=== PATIENT | female | born 1990 | race Caucasian/White ===

== ENCOUNTER 2017-07-10 00:30 | Emergency (ER) | payer MEDICAID ==
[~2017-07-10] VITALS: Ht 5.1 cm; Wt 44.7 kg
[~2017-07-10 00:30] MED LIST: ACET-1757 PO; DOCU-131 PO; HYDR1TAB12 PO; IBUP-1222 PO; PREN1TAB28 PO
[2017-07-10 00:31] VITALS: BP 125/73
== END 2017-07-10 02:43 | disposition home or self-care (01) ==
LOC: ED 01:18
DX: O26.891 Other specified pregnancy related conditions, first trimester (principal); R10.2 Pelvic and perineal pain; O99.331 Smoking (tobacco) complicating pregnancy, first trimester; Z3A.11 11 weeks gestation of pregnancy
CPT/HCPCS: 36415; 76801; 84702; 86901; 99285

== ENCOUNTER 2017-10-17 16:25 | Outpatient (CLI) | payer MEDICAID ==
[2017-10-17 16:37] VITALS: BP 115/70
[2017-10-17 17:11] LABS: DAU SCREEN DISCLAIMER
== END 2017-10-17 18:20 | disposition home or self-care (01) ==
LOC: LDOP 16:25
PROVIDERS: ATTEND Student in an Organized Health Care Education/Training Program
DX: O99.332 Smoking (tobacco) complicating pregnancy, second trimester (principal); O99.343 Other mental disorders complicating pregnancy, third trimester; F32.9 Major depressive disorder, single episode, unspecified; Z3A.25 25 weeks gestation of pregnancy
CPT/HCPCS: 59025; 80307; 99201; G0463; G0479

== ENCOUNTER 2017-11-18 06:12 | Emergency (ER) | payer MEDICAID ==
[~2017-11-18] VITALS: Ht 157.5 cm; Wt 53.3 kg
[2017-11-18 06:13] VITALS: BP 130/79
[2017-11-18] MEDS ORDERED: ACETAMINOPHEN 500 MG TABLET ONE (06:38)
[2017-11-18] MEDS ORDERED: ACETAMINOPHEN 500 MG TABLET PO ONE (07:00)
== END 2017-11-18 07:09 | disposition home or self-care (01) ==
LOC: ED 06:50
DX: K08.89 Other specified disorders of teeth and supporting structures (principal); O26.893 Other specified pregnancy related conditions, third trimester; Z3A.30 30 weeks gestation of pregnancy; O99.333 Smoking (tobacco) complicating pregnancy, third trimester; F17.210 Nicotine dependence, cigarettes, uncomplicated
CPT/HCPCS: 99283

== ENCOUNTER 2017-12-06 02:27 | Emergency (ER) | payer MEDICAID ==
[~2017-12-06] VITALS: Ht 157.5 cm; Wt 56.0 kg
[2017-12-06 02:30] VITALS: BP 116/76
== END 2017-12-06 04:16 | disposition left against medical advice (07) ==
LOC: ED 03:08
DX: O26.893 Other specified pregnancy related conditions, third trimester (principal); Z3A.33 33 weeks gestation of pregnancy; N76.0 Acute vaginitis
CPT/HCPCS: 99281

== ENCOUNTER 2018-01-08 19:36 | Outpatient (CLI) | payer MEDICAID ==
[~2018-01-08] VITALS: Ht 157.5 cm; Wt 60.5 kg
[~2018-01-08 19:36] MED LIST changes: +ACET325T14 PO; +ACYC-114 PO; +CYCL5TAB PO
[2018-01-08] MEDS ORDERED: LACTATED RINGERS 1,000 ML IV SCH (20:07)
[2018-01-08] MEDS ORDERED: FENTANYL PF 100 MCG/2ML ONE (20:11)
[2018-01-08 20:21] LABS: AMPHETAMINE SCREEN, URINE Negative (Negative); BARBITURATE SCREEN, URINE Negative (Negative); BENZODIAZEPINE SCREEN, URINE Negative (Negative); CANNABINOID SCREEN, URINE Negative (Negative); COCAINE SCREEN, URINE Negative (Negative); METHADONE SCREEN, URINE Negative (Negative); OPIATE SCREEN, URINE Negative (Negative)
[2018-01-08 20:30] VITALS: BP 118/56
[2018-01-08] MEDS ORDERED: PLEASE ENTER HEIGHT AND WEIGHT MC SCH (20:30)
[2018-01-08] MEDS ORDERED: FENTANYL PF 100 MCG/2ML IVPush PRN (20:30)
[2018-01-08] MEDS ORDERED: LACTATED RINGERS 1,000 ML IVBOLUS ONE (20:30)
[2018-01-08 21:38] LABS: CULTURE INDICATED? YES; MICROSCOPIC INDICATED
[2018-01-08] MEDS ORDERED: ACETAMINOPHEN 325 MG TABLET ONE (22:41)
[2018-01-08] MEDS ORDERED: ACETAMINOPHEN 325 MG TABLET PO ONE (23:00)
== END 2018-01-08 22:45 | disposition home or self-care (01) ==
LOC: LDOP 19:36
PROVIDERS: ATTEND Obstetrics & Gynecology
DX: O23.03 Infections of kidney in pregnancy, third trimester (principal); N13.6 Pyonephrosis; Z3A.38 38 weeks gestation of pregnancy
CPT/HCPCS: 59025; 76770; 80307; 81001; 87086; 99211; J3010; J7120; 87147; G0463

== ENCOUNTER 2018-01-22 03:16 | Emergency (ER) | payer MEDICAID ==
[~2018-01-22] VITALS: Ht 157.5 cm; Wt 49.6 kg
[~2018-01-22 03:16] MED LIST changes: +OXYC-302 PO
[2018-01-22 03:17] VITALS: BP 122/77
[2018-01-22 03:55] LABS: BASOPHILS # (AUTO) 0.05 x10^3/uL (0-0.1); BASOPHILS % (AUTO) 1 % (0-1); EOSINOPHILS % (AUTO) 1 % (1-7); LYMPHOCYTES # (AUTO) 1.94 x10^3/uL (1-3.4); LYMPHOCYTES % (AUTO) 26 % (22-44); MD NO; MEAN CORPUSCULAR HEMOGLOBIN 20.9 pg (27.0-34.8); MEAN CORPUSCULAR HGB CONC 30.6 g/dL (32.4-35.8); MEAN CORPUSCULAR VOLUME 68.4 fL (80-100); MEAN PLATELET VOLUME 7.6 fL (7.4-10.4); MONOCYTES # (AUTO) 0.47 x10^3/uL (0.2-0.8); MONOCYTES % (AUTO) 6 % (2-9); NEUTROPHILS # (AUTO) 4.88 x10^3/uL (1.8-6.8); NEUTROPHILS % (AUTO) 66 % (42-75); PLATELET COUNT 469 x10^3/uL (130-400); RED BLOOD COUNT 3.95 x10^6/uL (3.82-5.3); RED CELL DISTRIBUTION WIDTH 19.2 % (9.6-15.2)
[2018-01-22 04:09] LABS: ALBUMIN 3.2 g/dL (3.4-5.0); ANION GAP 9 mmol/L (5-15); CALCIUM 8.4 mg/dL (8.5-10.1); CHLORIDE 108 mmol/L (98-107); CREATININE 0.67 mg/dL (0.55-1.02)
[2018-01-22 04:36] LABS: MICROSCOPIC INDICATED
[2018-01-22 04:44] LABS: CULTURE INDICATED? NO
== END 2018-01-22 05:00 ==
LOC: ED 04:54
DX: R10.30 Lower abdominal pain, unspecified (principal); R30.0 Dysuria
CPT/HCPCS: 36415; 80048; 81001; 82040; 84703; 85025; 99284

== ENCOUNTER 2019-01-30 17:27 | Emergency (ER) | payer MEDICAID ==
[~2019-01-30] VITALS: Ht 157.5 cm; Wt 46.1 kg
[~2019-01-30 17:27] MED LIST changes: -HYDR1TAB12 PO; +HYDR1TAB13 PO
[2019-01-30 17:47] VITALS: BP 108/68
--- NOTE | 2019-01-30 18:39 | NUR ---
Patient/Caregiver given discharge instructions and they have confirmed that they understand the instructions. Patient ambulatory with steady gait.
== END 2019-01-30 18:40 | disposition home or self-care (01) ==
LOC: ED 18:10
DX: K02.9 Dental caries, unspecified (principal); F17.210 Nicotine dependence, cigarettes, uncomplicated
CPT/HCPCS: 99283

== ENCOUNTER 2020-01-11 15:51 | Observation (INO) | payer SELFPAY ==
[~2020-01-11] VITALS: Ht 157.5 cm; Wt 58.1 kg
[~2020-01-11 15:51] MED LIST changes: -ACET-1757 PO; +ACET-2065 PO
[2020-01-11] MEDS ORDERED: LACTATED RINGERS 1,000 ML IVBOLUS ONE (16:30)
[2020-01-11] MEDS ORDERED: LACTATED RINGERS 1,000 ML IV SCH (16:30)
[2020-01-11 16:37] LABS: CULTURE INDICATED? YES; MICROSCOPIC INDICATED
[2020-01-11 16:40] LABS: AMPHETAMINE SCREEN, URINE Negative (Negative); CANNABINOID SCREEN, URINE Negative (Negative); COCAINE SCREEN, URINE Negative (Negative); METHADONE SCREEN, URINE Negative (Negative); OPIATE SCREEN, URINE Negative (Negative)
[2020-01-11 16:41] LABS: BARBITURATE SCREEN, URINE Negative (Negative); BENZODIAZEPINE SCREEN, URINE Negative (Negative)
[2020-01-11 16:56] VITALS: BP 112/68
[2020-01-11] MEDS ORDERED: FLU VACC QS2019-20 36MOS UP/PF 0.5 ML IM-VACC ONE (17:30)
[2020-01-11 17:50] LABS: BASOPHILS # (AUTO) 0.03 x10^3/uL (0-0.1); BASOPHILS % (AUTO) 0 % (0-1); EOSINOPHILS # (AUTO) 0.29 x10^3/uL (0-0.4); EOSINOPHILS % (AUTO) 3 % (1-7); LYMPHOCYTES % (AUTO) 15 % (22-44); MD NO; MEAN CORPUSCULAR HEMOGLOBIN 21.2 pg (27.0-34.8); MEAN CORPUSCULAR HGB CONC 31.1 g/dL (32.4-35.8); MEAN CORPUSCULAR VOLUME 68.1 fL (80-100); MEAN PLATELET VOLUME 8.4 fL (7.4-10.4); MONOCYTES # (AUTO) 0.41 x10^3/uL (0.2-0.8); MONOCYTES % (AUTO) 4 % (2-9); NEUTROPHILS # (AUTO) 7.47 x10^3/uL (1.8-6.8); NEUTROPHILS % (AUTO) 78 % (42-75); PLATELET COUNT 193 x10^3/uL (130-400); RED BLOOD COUNT 4.03 x10^6/uL (3.82-5.3); RED CELL DISTRIBUTION WIDTH 18.4 % (9.6-15.2)
== END 2020-01-11 19:12 | disposition home or self-care (01) ==
LOC: LDOP 15:51 → LDIP 16:33
PROVIDERS: ADMIT Obstetrics & Gynecology; ATTEND Obstetrics & Gynecology
DX: O26.893 Other specified pregnancy related conditions, third trimester (principal); R10.9 Unspecified abdominal pain; R11.0 Nausea; R13.10 Dysphagia, unspecified; O99.343 Other mental disorders complicating pregnancy, third trimester; F41.8 Other specified anxiety disorders; O99.333 Smoking (tobacco) complicating pregnancy, third trimester; F17.210 Nicotine dependence, cigarettes, uncomplicated; O99.013 Anemia complicating pregnancy, third trimester; D50.9 Iron deficiency anemia, unspecified; Z3A.35 35 weeks gestation of pregnancy; Z79.899 Other long term (current) drug therapy; Z23 Encounter for immunization
CPT/HCPCS: 36415; 59025; 76805; 80307; 81001; 82947; 83036; 85025; 86592; 86762; 86850; 86900; 87081; 87086; 87340; 87806; 90471; 90686; 99211; G0378; J7120; 96360; 96361; 96372; G0463; G0475

== ENCOUNTER 2020-01-23 23:17 | Outpatient (CLI) | payer SELFPAY ==
[~2020-01-23] VITALS: Ht 157.5 cm; Wt 58.0 kg
[2020-01-23 23:45] VITALS: BP 110/60
[2020-01-24] LABS: MICROSCOPIC INDICATED
[2020-01-24 00:01] LABS: AMPHETAMINE SCREEN, URINE Negative (Negative); BARBITURATE SCREEN, URINE Negative (Negative); BENZODIAZEPINE SCREEN, URINE Negative (Negative); CANNABINOID SCREEN, URINE Positive (Negative); COCAINE SCREEN, URINE Negative (Negative); METHADONE SCREEN, URINE Negative (Negative); OPIATE SCREEN, URINE Negative (Negative)
== END 2020-01-24 00:55 | disposition home or self-care (01) ==
LOC: LDOP 23:17
PROVIDERS: ATTEND Student in an Organized Health Care Education/Training Program
DX: O26.893 Other specified pregnancy related conditions, third trimester (principal); M54.5 Low back pain; Z3A.37 37 weeks gestation of pregnancy
CPT/HCPCS: 59025; 80307; 81001; 99211; G0463

== ENCOUNTER 2020-01-30 00:32 | Outpatient (CLI) | payer SELFPAY ==
[~2020-01-30] VITALS: Ht 157.5 cm; Wt 65.6 kg
[2020-01-30 01:36] LABS: MICROSCOPIC INDICATED
[2020-01-30 01:50] LABS: AMPHETAMINE SCREEN, URINE Negative (Negative); BARBITURATE SCREEN, URINE Negative (Negative); BENZODIAZEPINE SCREEN, URINE Negative (Negative); CANNABINOID SCREEN, URINE Negative (Negative); COCAINE SCREEN, URINE Negative (Negative); METHADONE SCREEN, URINE Negative (Negative); OPIATE SCREEN, URINE Negative (Negative)
== END 2020-01-30 02:40 | disposition home or self-care (01) ==
LOC: LDOP 00:32
PROVIDERS: ATTEND Obstetrics & Gynecology
DX: O42.92 Full-term premature rupture of membranes, unspecified as to length of time between rupture and onset of labor (principal); Z3A.37 37 weeks gestation of pregnancy
CPT/HCPCS: 59025; 80307; 81001; 87086; 89060; 99211; G0463; Q0114

== ENCOUNTER 2020-02-02 06:30 | Outpatient (CLI) | payer MEDICAID ==
[2020-02-02 07:49] LABS: MICROSCOPIC INDICATED
[2020-02-02 07:52] LABS: AMPHETAMINE SCREEN, URINE Negative (Negative); BARBITURATE SCREEN, URINE Negative (Negative); BENZODIAZEPINE SCREEN, URINE Negative (Negative); CANNABINOID SCREEN, URINE Negative (Negative); COCAINE SCREEN, URINE Negative (Negative); METHADONE SCREEN, URINE Negative (Negative); OPIATE SCREEN, URINE Negative (Negative)
[2020-02-02 08:14] LABS: CULTURE INDICATED? YES
[2020-02-02 09:15] LABS: ALANINE AMINOTRANSFERASE 11 U/L (12-78)
== END 2020-02-02 09:40 | disposition home or self-care (01) ==
LOC: LDOP 06:30
PROVIDERS: ATTEND Obstetrics & Gynecology
DX: O26.893 Other specified pregnancy related conditions, third trimester (principal); R10.9 Unspecified abdominal pain; Z3A.38 38 weeks gestation of pregnancy
CPT/HCPCS: 36415; 59025; 80307; 81001; 84450; 84460; 87086; 99211; G0463

== ENCOUNTER 2020-02-07 06:42 | Inpatient (IN) | payer MEDICAID ==
[~2020-02-07] VITALS: Ht 157.5 cm; Wt 67.2 kg
[2020-02-07] MEDS ORDERED: LACTATED RINGERS 1,000 ML IV SCH (07:26)
[2020-02-07] MEDS ORDERED: LACTATED RINGERS 1,000 ML IVBOLUS ONE (07:30)
[2020-02-07] MEDS ORDERED: SODIUM CITRATE/CITRIC ACID 30 ML UDC PO ONE (07:30)
[2020-02-07] MEDS ORDERED: METOCLOPRAMIDE 5 MG/ML, 2ML IV ONE (07:30)
[2020-02-07] MEDS ORDERED: morphine SULFATE/PF 0.5 MG/ML, 10ML ONE (08:21)
[2020-02-07] MEDS ORDERED: WATER-INJECTION,STERILE 10 ML IV ONE (08:23)
[2020-02-07] MEDS ORDERED: PHENYLEPHRINE 10 MG/ML ONE (08:23)
[2020-02-07] MEDS ORDERED: OXYTOCIN 10 UNITS/ML, 1ML ONE (08:23)
[2020-02-07] MEDS ORDERED: CEFAZOLIN 1,000 MG ONE (08:23)
[2020-02-07] MEDS ORDERED: SODIUM CHLORIDE 0.9% PF 10ML ONE (08:23)
[2020-02-07] MEDS ORDERED: ONDANSETRON 2MG/ML, 2ML ONE (08:23)
[2020-02-07] MEDS ORDERED: DEXAMETHASONE 4 MG/ML, 1ML ONE (08:23)
[2020-02-07] MEDS ORDERED: KETOROLAC 30 MG/1 ML ONE (08:23)
[2020-02-07] MEDS ORDERED: METOCLOPRAMIDE 5 MG/ML, 2ML ONE (08:34)
[2020-02-07] MEDS ORDERED: SODIUM CITRATE/CITRIC ACID 30 ML UDC ONE (08:34)
[2020-02-07 08:35] LABS: MEAN CORPUSCULAR HEMOGLOBIN 20.7 pg (27.0-34.8); MEAN CORPUSCULAR VOLUME 66.8 fL (80-100); MEAN PLATELET VOLUME 8.6 fL (7.4-10.4); PLATELET COUNT 188 x10^3/uL (130-400); RED BLOOD COUNT 3.85 x10^6/uL (3.82-5.3)
[2020-02-07 08:36] LABS: AMPHETAMINE SCREEN, URINE Negative (Negative); BARBITURATE SCREEN, URINE Negative (Negative); BENZODIAZEPINE SCREEN, URINE Negative (Negative); CANNABINOID SCREEN, URINE Positive (Negative); COCAINE SCREEN, URINE Negative (Negative); METHADONE SCREEN, URINE Negative (Negative); OPIATE SCREEN, URINE Negative (Negative)
[2020-02-07 08:36] LABS: BASOPHILS # (AUTO) 0.03 x10^3/uL (0-0.1); BASOPHILS % (AUTO) 0 % (0-1); EOSINOPHILS # (AUTO) 0.27 x10^3/uL (0-0.4); EOSINOPHILS % (AUTO) 3 % (1-7); LYMPHOCYTES # (AUTO) 1.87 x10^3/uL (1-3.4); LYMPHOCYTES % (AUTO) 18 % (22-44); MD SCAN; MONOCYTES # (AUTO) 0.39 x10^3/uL (0.2-0.8); MONOCYTES % (AUTO) 4 % (2-9); NEUTROPHILS # (AUTO) 7.69 x10^3/uL (1.8-6.8); NEUTROPHILS % (AUTO) 75 % (42-75)
[2020-02-07] MEDS ORDERED: NEWBORN KIT ONE (08:36)
[2020-02-07] MEDS ORDERED: MIDAZOLAM 1 MG/ML, 2ML ONE (09:29)
[2020-02-07] MEDS ORDERED: MEPERIDINE/PF 100 MG/ML ONE (10:08)
[2020-02-07] MEDS ORDERED: OXYTOCIN 30U/ 0.9% NaCL 500ML 500 ML ONE (10:09)
[2020-02-07] MEDS: OXYTOCIN 30U/ 0.9% NaCL 500ML 500 ML IV SCH ×2 (10:20→20:30)
[2020-02-07] MEDS ORDERED: ONDANSETRON 2MG/ML, 2ML IV PRN (10:30)
[2020-02-07] MEDS ORDERED: morphine SULFATE 10 MG/ML, 1ML IVPush PRN ×3 (10:30→12:30)
[2020-02-07] MEDS ORDERED: TRANEXAMIC ACID 1,000 MG in SODIUM CHLORIDE 0.9% 100 ML IVPB ONE (10:30)
[2020-02-07] MEDS ORDERED: MISOPROSTOL 200 MCG TABLET PR PRN (10:30)
[2020-02-07] MEDS ORDERED: METHYLERGONOVINE 0.2 MG/ML IM PRN (10:30)
[2020-02-07] MEDS: LACTATED RINGERS 1,000 ML IV SCH ×4 (10:30→20:30)
[2020-02-07] MEDS ORDERED: OXYcodone/APAP 5/325MG TABLET PO PRN ×2 (10:30)
[2020-02-07] MEDS ORDERED: SIMETHICONE 80 MG CHEW TAB PO PRN (10:30)
[2020-02-07] MEDS ORDERED: IBUPROFEN 800 MG TABLET PO PRN (10:30)
[2020-02-07] MEDS ORDERED: GLYCERIN ADULT SUPP PR PRN (10:30)
[2020-02-07] MEDS ORDERED: BISACODYL 10 MG SUPP PR PRN (10:30)
[2020-02-07] MEDS ORDERED: MEPERIDINE/PF 25MG/0.5ML IVPush PRN (11:00)
[2020-02-07] MEDS ORDERED: OXYcodone 5 MG/5 ML ORAL.SOL UDC ONE (11:58)
[2020-02-07] MEDS ORDERED: OXYcodone 5 MG/5 ML ORAL.SOL UDC PO PRN (12:00)
[2020-02-07] MEDS ORDERED: NALOXONE 0.4 MG/ML, 1ML IV PRN (12:30)
[2020-02-07] MEDS ORDERED: ONDANSETRON 2MG/ML, 2ML IVPush PRN (12:30)
[2020-02-07] MEDS ORDERED: MORPHINE SULFATE 4 MG/ML, 1ML IV PRN (12:30)
[2020-02-07] MEDS ORDERED: NO SEDATIVES, TRANQUILIZERS OR ANTIEMETICS XX SCH (12:30)
[2020-02-07] MEDS ORDERED: DIPHENHYDRAMINE 50 MG/ML, 1ML IV PRN ×2 (12:30)
[2020-02-07] MEDS ORDERED: DIPHENHYDRAMINE 50 MG/ML, 1ML IVPush PRN (12:30)
[2020-02-07 13:45] VITALS: BP 111/63
[2020-02-07] MEDS: KETOROLAC 30 MG/1 ML IVPush SCH ×2 (16:05→22:06)
[2020-02-07] MEDS: FERROUS SULFATE 325 MG TABLET PO SCH ×2 (17:00→22:06)
[2020-02-07 19:15] VITALS: BP 128/58
[2020-02-07 23:30] VITALS: BP 100/60
[2020-02-08] MEDS: LACTATED RINGERS 1,000 ML IV SCH ×5 (02:30→18:30)
[2020-02-08 04:00] VITALS: BP 99/61
[2020-02-08] MEDS: KETOROLAC 30 MG/1 ML IVPush SCH ×2 (04:03→09:52)
[2020-02-08 04:52] LABS: MEAN CORPUSCULAR HEMOGLOBIN 20.7 pg (27.0-34.8); MEAN CORPUSCULAR HGB CONC 31.1 g/dL (32.4-35.8); MEAN CORPUSCULAR VOLUME 66.5 fL (80-100); MEAN PLATELET VOLUME 10.3 fL (7.4-10.4); PLATELET COUNT 234 x10^3/uL (130-400); RED CELL DISTRIBUTION WIDTH 19.1 % (9.6-15.2)
[2020-02-08 05:26] LABS: ANISOCYTOSIS 2+; BASOPHILS # (AUTO) 0.01 x10^3/uL (0-0.1); BASOPHILS % (AUTO) 0 % (0-1); EOSINOPHILS # (AUTO) 0.02 x10^3/uL (0-0.4); EOSINOPHILS % (AUTO) 0 % (1-7); HYPOCHROMIA 1+; LYMPHOCYTES % (AUTO) 14 % (22-44); MD MORPH REVIEW ONLY; MICROCYTOSIS 2+; MONOCYTES # (AUTO) 0.72 x10^3/uL (0.2-0.8); MONOCYTES % (AUTO) 6 % (2-9); NEUTROPHILS # (AUTO) 10.46 x10^3/uL (1.8-6.8); NEUTROPHILS % (AUTO) 80 % (42-75); OVALOCYTES 1+; POLYCHROMASIA 1+
[2020-02-08 05:27] LABS: TEAR DROPS 1+
[2020-02-08 05:28] LABS: <PLATELET ESTIMATE> ADEQUATE; <PLT MORPHOLOGY> NORMAL PLT MORPH
[2020-02-08] MEDS: OXYTOCIN 30U/ 0.9% NaCL 500ML 500 ML IV SCH ×2 (06:30→16:30)
[2020-02-08] MEDS: PRENATAL VIT/IRON/FA 1 EACH TABLET PO SCH (09:52)
[2020-02-08] MEDS: DOCUSATE 100 MG CAPSULE PO PRN ×2 (09:52→23:43)
[2020-02-08] MEDS: FERROUS SULFATE 325 MG TABLET PO SCH ×3 (09:52→23:44)
[2020-02-08 10:00] VITALS: BP 100/65
[2020-02-08] MEDS: ACETAMINOPHEN 325 MG TABLET PO PRN ×2 (12:04→23:44)
[2020-02-08 15:00] VITALS: BP 99/62
[2020-02-08] MEDS: IBUPROFEN 800 MG TABLET PO PRN (17:18)
[2020-02-08 19:15] VITALS: BP 110/69
[2020-02-09] MEDS: IBUPROFEN 800 MG TABLET PO PRN ×2 (01:00→09:49)
[2020-02-09] MEDS: LACTATED RINGERS 1,000 ML IV SCH ×2 (02:30)
[2020-02-09] MEDS: OXYTOCIN 30U/ 0.9% NaCL 500ML 500 ML IV SCH (02:30)
[2020-02-09] MEDS: ACETAMINOPHEN 325 MG TABLET PO PRN (06:10)
[2020-02-09 07:55] VITALS: BP 102/58
[2020-02-09] MEDS: PRENATAL VIT/IRON/FA 1 EACH TABLET PO SCH (09:48)
[2020-02-09] MEDS: DOCUSATE 100 MG CAPSULE PO PRN (09:49)
[2020-02-09] MEDS: FERROUS SULFATE 325 MG TABLET PO SCH (09:49)
[2020-02-09] MEDS ORDERED: DIPH,PERTUSS(ACELL),TET VAC/PF NC IM-VACC ONE ×2 (10:37→11:00)
[2020-02-09] MEDS ORDERED: MEASLES,MUMPS&RUBELLA VACC/PF 0.5 ML SQ-VACC ONE (11:00)
[2020-02-09] MEDS ORDERED: OXYC-302 PO (13:08)
[2020-02-09] MEDS ORDERED: IBUP-1223 PO (13:10)
[2020-02-09] MEDS ORDERED: DOCU-131 PO (13:12)
[2020-02-09] MEDS ORDERED: FERR324T5 PO (13:15)
== END 2020-02-09 13:30 | disposition home or self-care (01) | DRG 787 ==
LOC: LDIP 06:42 → 2NW 12:41
PROVIDERS: ADMIT Obstetrics & Gynecology; ATTEND Obstetrics & Gynecology
PROC: 10D00Z1 Extraction of Products of Conception, Low, Open Approach (ICD-10-PCS; principal; 2020-02-07)
DX: O40.3XX0 Polyhydramnios, third trimester, not applicable or unspecified (principal); O98.52 Other viral diseases complicating childbirth; O99.324 Drug use complicating childbirth; O34.211 Maternal care for low transverse scar from previous cesarean delivery; B00.9 Herpesviral infection, unspecified; F12.90 Cannabis use, unspecified, uncomplicated; O99.344 Other mental disorders complicating childbirth; F32.9 Major depressive disorder, single episode, unspecified; Z37.0 Single live birth; Z3A.39 39 weeks gestation of pregnancy
CPT/HCPCS: 36415; 80307; 85025; 86592; 86850; 86900; 86923; 90715; G0378; J0690; J1100; J1885; J2175; J2250; J2274; J2405; J1200; J2370; J2590; J2765; J7120

== ENCOUNTER 2020-12-28 10:51 | Emergency (ER) | payer MEDICAID ==
[~2020-12-28] VITALS: Ht 157.5 cm; Wt 56.2 kg
[~2020-12-28 10:51] MED LIST changes: +FERR324T5 PO; +IBUP-1223 PO; -OXYC-302 PO; +OXYC1TAB14 PO
[2020-12-28 10:53] VITALS: BP 97/70
--- NOTE | 2020-12-28 11:06 | NUR ---
pt states she just wants a covid test
--- NOTE | 2020-12-28 11:50 | NUR ---
pt refused all treatment and tests except the covid swab
== END 2020-12-28 12:12 | disposition home or self-care (01) ==
LOC: ED 11:40
DX: J02.8 Acute pharyngitis due to other specified organisms (principal); Z20.822 Contact with and (suspected) exposure to COVID-19; B34.9 Viral infection, unspecified; R10.9 Unspecified abdominal pain; R06.00 Dyspnea, unspecified
CPT/HCPCS: 87081; 87880; 99283; U0003